=== PATIENT | female | born 1980 ===

== ENCOUNTER 2017-10-09 11:30 | Emergency (ER) | payer OTHER ==
[2017-10-09 11:31] VITALS: BMI 26.9
[2017-10-09 11:38] VITALS: BP 123/93; PULSE 90; RESP 17; TEMP 98.2; O2SAT 99
[2017-10-09 12:03] LABS: HCG,QUALITATIVE URINE NEGATIVE (NEGATIVE); SQUAMOUS EPITHIAL < 1 /hpf (0-5); URINE BILIRUBIN NEGATIVE (NEGATIVE); URINE BLOOD 1+ (NEGATIVE); URINE CLARITY Clear (Clear); URINE COLOR Yellow (YELLOW); URINE GLUCOSE (UA) NORMAL (Normal); URINE LEUKOCYTE ESTERASE NEG Leu/uL (Negative); URINE PROTEIN NEGATIVE (NEGATIVE); URINE UROBILINOGEN NORMAL mg/dL (0.2-1.0)
--- NOTE | 2017-10-09 12:47 | C.PDOC ---
History Of Present Illness Patient presents to ED c/o suprapubic pressure, urinary urgency and dysuria since yesterday. She denies fever, abdominal pain, nausea/vomiting, vaginal bleeding/discharge, labial pain/swelling, hematuria. Time Seen by Provider: 10/09/17 11:38 Chief Complaint (Nursing): Female Genitourinary History Per: Patient History/Exam Limitations: no limitations Onset/Duration Of Symptoms: Days (2) Current Symptoms Are (Timing): Still Present Severity: Mild Quality Of Discomfort: Burning, Pressure Abnormal Vaginal Bleeding: No Past Medical History Reviewed: Historical Data, Nursing Documentation, Vital Signs Vital Signs: Last Vital Signs Temp 98.2 F 10/09/17 11:34 Pulse 90 10/09/17 11:34 Resp 17 10/09/17 11:34 BP 123/93 H 10/09/17 11:34 Pulse Ox 99 10/09/17 11:34 - Medical History PMH: Arthritis (KNEE PAIN,JOINT PAIN), Gastritis (ESOPHAGITIS) Denies: Chronic Kidney Disease Surgical History: Endoscopy Family History: States: No Known Family Hx - Social History Hx Alcohol Use: No Hx Substance Use: No - Immunization History Hx Tetanus Toxoid Vaccination: No Hx Influenza Vaccination: No Hx Pneumococcal Vaccination: No Review Of Systems Constitutional: Negative for: Fever, Chills Respiratory: Negative for: Shortness of Breath Gastrointestinal: Negative for: Nausea, Vomiting, Abdominal Pain, Diarrhea Genitourinary: Positive for: Dysuria, Frequency, Pelvic Pain. Negative for: Incontinence, Hematuria, Vaginal Discharge, Vaginal Bleeding Skin: Negative for: Rash Physical Exam - Physical Exam Appears: Well, Non-toxic, No Acute Distress Skin: Normal Color, Warm, Dry Oral Mucosa: Moist Cardiovascular: Rhythm Regular Respiratory: Normal Breath Sounds, No Rales, No Rhonchi, No Wheezing Gastrointestinal/Abdominal: Tenderness (mild suprapubic TTP, (-) McBurney's, (- ) Medrano's) Back: No CVA Tenderness Neurological/Psych: Oriented x3 ED Course And Treatment O2 Sat by Pulse Oximetry: 99 (RA) Pulse Ox Interpretation: Normal Progress Note: UA, Upreg ordered and reviewed. UA shows +1 blood, no nitrates or leukesterase. Patient's symptoms suspcious for acute cystitis - she denies vaginal discharge/bleeding/lesions/rash, flank pain, hematuria. UCx sent. Will treat patient with PO Cipro and Pyridium, and instructed her to follow up with her PMD/clinic in 1-2 days. She understands she should return to ED if symptoms worsen. Disposition Counseled Patient/Family Regarding: Studies Performed, Diagnosis, Need For Followup, Rx Given - Disposition Referrals: [facility] at [facility] [Outside] Disposition: HOME/ ROUTINE Disposition Time: 12:50 Condition: STABLE Additional Instructions: FOLLOW UP WITH YOUR DOCTOR/CLINIC IN 1-2 DAYS USE MEDICATIONS DIRECTED RETURN TO EMERGENCY ROOM IF SYMPTOMS WORSEN SEGUIMIENTO CON ROMERO MDICO / CLNICA EN 1-2 OROZCO USE MEDICAMENTOS SEGN LO INDICADO REGRESE AL CADEN DE EMERGENCIA SI LOS SNTOMAS EMPEORAN Prescriptions: Ciprofloxacin [Cipro] 1 tab PO BID #14 tab Phenazopyridine [Pyridium] 100 mg PO TID #9 tab Instructions: Acute Cystitis (DC) Print Language: DANISH - Clinical Impression Clinical Impression: Hemorrhagic cystitis
== END 2017-10-09 12:54 | disposition home or self-care (01) ==
LOC: C.ER 11:30
DX: N30.90 Cystitis, unspecified without hematuria (principal)

== ENCOUNTER 2017-10-11 12:36 | Emergency (ER) | payer OTHER ==
[2017-10-11 12:36] VITALS: BMI 26.9
[2017-10-11 12:45] VITALS: RESP 18
[2017-10-11 14:39] LABS: SQUAMOUS EPITHIAL 1 /hpf (0-5); URINE BACTERIA RARE (<OCC); URINE BILIRUBIN NEGATIVE (NEGATIVE); URINE BLOOD 1+ (NEGATIVE); URINE CLARITY Clear (Clear); URINE COLOR Yellow (YELLOW); URINE GLUCOSE (UA) NORMAL (Normal); URINE LEUKOCYTE ESTERASE NEG Leu/uL (Negative); URINE PROTEIN NEGATIVE (NEGATIVE); URINE UROBILINOGEN NORMAL mg/dL (0.2-1.0)
--- NOTE | 2017-10-11 14:51 | C.PDOC ---
History Of Present Illness 37 y/o female c/o suprapubic pain, dyusuria and frequency for several days. pt seen in ED on thursday for same and started on Cipro and pyridium. pt started feeling better, then had worse pain since last night. denies n/v/d, fever, chill , back pain, vaginal discharge, vaginal lesions. pt sts it feels like a burning sensation on the inside. Time Seen by Provider: 10/11/17 13:16 Chief Complaint (Nursing): Female Genitourinary History Per: Patient History/Exam Limitations: no limitations (4) Onset/Duration Of Symptoms: Days (4) Severity: Moderate Quality Of Discomfort: Burning Associated Symptoms: Urinary Symptoms. denies: Fever, Chills, Nausea, Vomiting , Back Pain Past Medical History Reviewed: Historical Data, Nursing Documentation, Vital Signs Vital Signs: Last Vital Signs Temp 98.2 F 10/11/17 15:37 Pulse 74 10/11/17 15:37 Resp 18 10/11/17 15:37 BP 121/84 10/11/17 15:37 Pulse Ox 98 10/15/17 16:24 - Medical History PMH: Arthritis (KNEE PAIN,JOINT PAIN), Gastritis (ESOPHAGITIS) Denies: Chronic Kidney Disease Surgical History: Endoscopy Family History: States: Unknown Family Hx - Social History Hx Alcohol Use: No Hx Substance Use: No - Immunization History Hx Tetanus Toxoid Vaccination: No Hx Influenza Vaccination: No Hx Pneumococcal Vaccination: No Review Of Systems Constitutional: Negative for: Fever, Chills Gastrointestinal: Positive for: Abdominal Pain (suprpubic). Negative for: Nausea, Vomiting Genitourinary: Positive for: Dysuria, Frequency. Negative for: Vaginal Discharge, Vaginal Bleeding, Rash Skin: Negative for: Rash Neurological: Negative for: Weakness, Numbness Physical Exam - Physical Exam Appears: Non-toxic, No Acute Distress Skin: Warm, Dry Head: Atraumatic, Normacephalic Oral Mucosa: Moist Neck: Supple Cardiovascular: Rhythm Regular, No Murmur Respiratory: No Decreased Breath Sounds, No Wheezing Gastrointestinal/Abdominal: Bowel Sounds, Soft, Tenderness (mild suprpapubic tenderness), No Distention, No Guarding, No Rebound Back: No CVA Tenderness Pelvic: Normal External Exam, Normal Speculum Exam, Normal Bimanual Exam, No Vaginal Bleeding, Vaginal Discharge (scant white discharge), No Cervical Motion Tenderness, No Adnexal Tenderness, Other (chaperoned by THEODORA Kebede) Neurological/Psych: Oriented x3, Normal Speech, Normal Cognition ED Course And Treatment O2 Sat by Pulse Oximetry: 98 Medical Decision Making Medical Decision Making: pt with bladder discomfort for several days, taking cipro and pyridium. repeat ua with +1 blood, 3 rbc, no le or nitrate. scant white d/c in vaginal vault. possibility of cystitis or interstitial cystitis; will tx for vaginitis with metro gel pt has clinic appt 10/19, recommend continue cipro and pyridium, start metro gel. pt should f/u residential treatment specialist and urology. Disposition Counseled Patient/Family Regarding: Studies Performed, Diagnosis, Need For Followup, Rx Given - Disposition Referrals: [facility] at [facility] [Outside] Regan Dick MD [Staff Provider] - Disposition: HOME/ ROUTINE Disposition Time: 15:03 Condition: GOOD Additional Instructions: Continue cipro and pyridium. Tylenol or MOtrin for pain. Follow up with medical clinic, residential treatment specialist and with urology. Use metro gel as prescribed. Do not drink any alcoholic beverage with this medicine Prescriptions: Metronidazole [Metrogel-Vaginal] 1 applic VG HS #1 gel Instructions: Dysuria, Adult (DC) Forms: [facility] (Puerto [place]ican), General Discharge Instructions - Clinical Impression Clinical Impression: Dysuria
[2017-10-11 15:40] VITALS: BP 121/84; PULSE 74; TEMP 98.2
[2017-10-15 16:22] VITALS: O2SAT 98
== END 2017-10-11 15:40 | disposition home or self-care (01) ==
LOC: C.ER 12:36
DX: R30.0 Dysuria (principal)